=== PATIENT | male | born 1960 | race Caucasian/White ===

== ENCOUNTER 2020-10-13 11:25 | Outpatient (RCR) | payer BC, SELFPAY ==
[2020-10-13] MEDS: COVID-19 VACC, MRNA(PFIZER)/PF 30 MCG/0.3 ML SYRINGE IM (12:20)
[2020-11-03] MEDS: COVID-19 VACC, MRNA(PFIZER)/PF 30 MCG/0.3 ML SYRINGE IM (12:37)
== END 2020-10-13 23:59 ==
LOC: IMMUN 11:25
PROVIDERS: PCP Preventive Medicine Occupational Medicine; Referring Provider Family Medicine; Visit Provider Family Medicine
DX: Z23 Encounter for immunization (principal)
CPT/HCPCS: 0001A; 0002A; 91300

== ENCOUNTER 2023-11-04 10:00 | Outpatient (RCR) | payer OTHER, MEDICARE, SELFPAY ==
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
--- NOTE | 2023-11-04 10:43 | HP.PTDCSUM ---
Discharge Summary D/C summary: It has been my pleasure to treat BEE MCFARLAND referred by DEJA ALALN, with the diagnosis of Closed Fx of R clavicle (surgery was 08-14-11) for a total of 9 visit(s). Discharge Date: 11/04/23 Please see the following information for a summary of their discharge status. Subjective Subjective: He is amazed that he is doing so well. The only pain he has is when he sleeps on either shoulder. Pain R shoulder pain: Pain Intensity (Out of 10): 0 Overall Improvement % Improvement: 98 Objective Objective/Function: R shoulder MMT: flexion 14, ABD 12.2, ER 17.5 R shoulder AROM: Flex 155, ABD 150, ER 60, IR T12 Goals Goal 1:: I HEP Goal Progress: Goal Met Goal 2:: Increase R shoulder AROM (at the time of the eval: R shoulder AROM: Flex 80, ABD 73, ER 40, IR L2 L shoulder AROM: 160, ABD 155, ER 55, IR T12) Goal Progress: Goal Met Goal 3:: Increase R shoulder strength (at the time of the eval: R shoulder MMT: flexion 9.5, ABD 7.9, ER 15 L shoulder MMT: Flexion 14.6, ABD 12.7, 19.1). Goal Progress: Goal Met Goal 4:: Be able to return to full functional use of his R UE with ADL's and activities Goal Progress: Goal Met Plan Plan: DC to HEP D/C Information Discharge Comments: DC PT d/c sentence: If there are questions or concerns regarding this patient's physical therapy, please feel free to call me at [phone]. Thank you for the referral of this patient. Sincerely, Michell Keith, MPT Balance/Gait/Functional tests Balance/Special Test Scores Quick DASH Score: 4.5450 Improvement % Improvement: 98
== END 2023-11-04 19:00 | disposition home or self-care (01) ==
LOC: PT 10:00
PROVIDERS: PCP Preventive Medicine Occupational Medicine
DX: S42.001D Fracture of unspecified part of right clavicle, subsequent encounter for fracture with routine healing (principal)
CPT/HCPCS: 97110; 97161; 97530